=== PATIENT | female | born 1940 | race Caucasian/White ===

== ENCOUNTER 2019-02-03 19:54 | Inpatient (IN) | payer OTHER ==
[~2019-02-03] VITALS: Ht 165.1 cm; Wt 50.4 kg
[~2019-02-03 19:54] MED LIST: ASPIR 8181 MG PO; BG MC; DOC-Q-LAX1 TAB PO; FLUOXETINE10 M2 PO; GOOD SENSE ASPI81 M3 PO; HUMULIN R100 U/1 M1 IV; HUMULIN R100 U/1 M1 SC; LOTENSIN10 MG PO; METFORMIN HCL500 MG PO; MULTI-VITAMINS1 TAB PO; NOVOLOG MIX 70/33 ML SC; SIMVASTATIN10 M1 PO; TOPROL XL100 MG PO; VITAMIN C100 M1 PO; VITAMIN D1 SG1 PO
[2019-02-03 21:02] LABS: BASOPHIL % 0.1 % (0-2); PLATELET COUNT 364 x10^3mcL (130-400)
[2019-02-03 21:03] LABS: RED CELL DISTRIBUTION WIDTH 16.4 % (11.5-14.5)
[2019-02-03 21:21] LABS: microscopic required? YES; urine erythrocyte 2+ (NEGATIVE)
[2019-02-03 21:35] LABS: CALCIUM 9.1 mg/dL (8.5-10.1); CARBON DIOXIDE 12.7 mmol/L (21-32); CHLORIDE SERUM 95 mmol/L (98-107); CREATININE SERUM 1.2 mg/dL (0.6-1.0); POTASSIUM SERUM 3.8 mmol/L (3.5-5.1); SODIUM SERUM 132 mmol/L (136-145)
[2019-02-03 21:37] LABS: ALKALINE PHOSPHATASE 132 U/L (46-116); ALT/SGPT 51 U/L (14-59); AST/SGOT 25 U/L (15-37); BILIRUBIN TOTAL 0.7 mg/dL (0.20-1.00); TOTAL PROTEIN, SERUM 6.5 g/dL (6.4-8.2)
[2019-02-03 21:41] LABS: ALBUMIN 3.3 g/dL (3.4-5.0)
[2019-02-03 21:57] LABS: GLUCOSE SERUM 789 mg/dL (74-106)
[2019-02-04 01:20] VITALS: BP 145/49
[2019-02-04 04:50] LABS: CALCIUM 7.8 mg/dL (8.5-10.1); CARBON DIOXIDE 19.5 mmol/L (21-32); CHLORIDE SERUM 109 mmol/L (98-107); CREATININE SERUM 0.8 mg/dL (0.6-1.0); GLUCOSE SERUM 329 mg/dL (74-106); MAGNESIUM 1.5 mg/dL (1.8-2.4); PHOSPHOROUS 1.3 mg/dL (2.5-4.9); SODIUM SERUM 140 mmol/L (136-145)
[2019-02-04 04:51] LABS: POTASSIUM SERUM 2.5 mmol/L (3.5-5.1)
[2019-02-04 05:02] LABS: T3 TOTAL 0.21 ng/mL
[2019-02-04 05:11] LABS: FREE T4 0.78 ng/dL (0.76-1.46)
[2019-02-04 05:17] LABS: FREE THYROXINE INDEX 1.1 ug/dL (1.4-4.5)
[2019-02-04 06:54] LABS: BASOPHIL % 0.4 % (0-2); PLATELET COUNT 272 x10^3mcL (130-400)
[2019-02-04 06:57] LABS: RED CELL DISTRIBUTION WIDTH 15.6 % (11.5-14.5)
[2019-02-04 08:11] VITALS: BP 125/50
[2019-02-04 09:24] LABS: CALCIUM 7.9 mg/dL (8.5-10.1); CARBON DIOXIDE 19.5 mmol/L (21-32); CHLORIDE SERUM 111 mmol/L (98-107); CREATININE SERUM 0.8 mg/dL (0.6-1.0); GLUCOSE SERUM 168 mg/dL (74-106); MAGNESIUM 1.3 mg/dL (1.8-2.4); PHOSPHOROUS 1.2 mg/dL (2.5-4.9); SODIUM SERUM 142 mmol/L (136-145)
[2019-02-04 09:26] LABS: POTASSIUM SERUM 2.4 mmol/L (3.5-5.1)
[2019-02-04 12:30] VITALS: BP 93/56
[2019-02-04 15:18] VITALS: BP 104/52
[2019-02-04 19:20] VITALS: BP 110/41
[2019-02-04 23:11] VITALS: BP 126/42
[2019-02-05 03:06] VITALS: BP 131/49
[2019-02-05 05:29] LABS: PLATELET COUNT 313 x10^3mcL (130-400)
[2019-02-05 05:31] LABS: CALCIUM 8.2 mg/dL (8.5-10.1); CARBON DIOXIDE 16.3 mmol/L (21-32); CHLORIDE SERUM 110 mmol/L (98-107); CREATININE SERUM 0.6 mg/dL (0.6-1.0); GLUCOSE SERUM 320 mg/dL (74-106); MAGNESIUM 2.1 mg/dL (1.8-2.4); PHOSPHOROUS 2.7 mg/dL (2.5-4.9); POTASSIUM SERUM 4.2 mmol/L (3.5-5.1); SODIUM SERUM 138 mmol/L (136-145)
[2019-02-05 05:32] LABS: BASOPHIL % 0 % (0-2); RED CELL DISTRIBUTION WIDTH 16.4 % (11.5-14.5)
[2019-02-05 08:05] VITALS: BP 125/79
[2019-02-05 08:54] VITALS: Ht 165.1 cm; Wt 50.4 kg
[2019-02-05 12:32] VITALS: BP 129/46
[2019-02-05 13:13] LABS: CALCIUM 6.5 mg/dL (8.5-10.1); CHLORIDE SERUM 105 mmol/L (98-107); GLUCOSE SERUM 127 mg/dL (74-106); SODIUM SERUM 137 mmol/L (136-145)
[2019-02-05 13:19] LABS: CARBON DIOXIDE 7.1 mmol/L (21-32); POTASSIUM SERUM 6.5 mmol/L (3.5-5.1)
[2019-02-05 16:00] VITALS: BP 133/76
[2019-02-05 16:09] LABS: CARBON DIOXIDE 16.5 mmol/L (21-32); CHLORIDE SERUM 109 mmol/L (98-107); CREATININE SERUM 0.6 mg/dL (0.6-1.0); GLUCOSE SERUM 258 mg/dL (74-106); POTASSIUM SERUM 4.2 mmol/L (3.5-5.1); SODIUM SERUM 135 mmol/L (136-145)
[2019-02-05 19:20] VITALS: BP 134/64
[2019-02-05 20:06] LABS: CARBON DIOXIDE 17.9 mmol/L (21-32); CHLORIDE SERUM 108 mmol/L (98-107); CREATININE SERUM 0.7 mg/dL (0.6-1.0); GLUCOSE SERUM 316 mg/dL (74-106); POTASSIUM SERUM 4.7 mmol/L (3.5-5.1); SODIUM SERUM 135 mmol/L (136-145)
[2019-02-05 23:05] VITALS: BP 131/61
[2019-02-06 03:05] VITALS: BP 125/57
[2019-02-06 05:40] LABS: BASOPHIL % 0.5 % (0-2); PLATELET COUNT 256 x10^3mcL (130-400)
[2019-02-06 05:42] LABS: RED CELL DISTRIBUTION WIDTH 16.1 % (11.5-14.5)
[2019-02-06 05:46] LABS: CALCIUM 7.6 mg/dL (8.5-10.1); CARBON DIOXIDE 20.7 mmol/L (21-32); CHLORIDE SERUM 108 mmol/L (98-107); CREATININE SERUM 0.6 mg/dL (0.6-1.0); GLUCOSE SERUM 265 mg/dL (74-106); MAGNESIUM 1.6 mg/dL (1.8-2.4); PHOSPHOROUS 3.8 mg/dL (2.5-4.9); POTASSIUM SERUM 3.9 mmol/L (3.5-5.1); SODIUM SERUM 137 mmol/L (136-145)
[2019-02-06 10:00] VITALS: BP 127/63
[2019-02-06 11:30] VITALS: BP 114/48
[2019-02-07 07:07] LABS: BASOPHIL % 0.2 % (0-2); PLATELET COUNT 242 x10^3mcL (130-400)
[2019-02-07 07:17] LABS: RED CELL DISTRIBUTION WIDTH 16.2 % (11.5-14.5)
[2019-02-07 07:21] LABS: CALCIUM 7.7 mg/dL (8.5-10.1); CARBON DIOXIDE 21.6 mmol/L (21-32); CHLORIDE SERUM 108 mmol/L (98-107); CREATININE SERUM 0.6 mg/dL (0.6-1.0); MAGNESIUM 1.7 mg/dL (1.8-2.4); POTASSIUM SERUM 3.4 mmol/L (3.5-5.1); SODIUM SERUM 138 mmol/L (136-145)
[2019-02-07 07:46] LABS: GLUCOSE SERUM 53 mg/dL (74-106)
[2019-02-07 08:15] VITALS: BP 131/57
[2019-02-07 11:51] VITALS: BP 94/52
[2019-02-07 16:35] VITALS: BP 112/70
[2019-02-07 20:10] VITALS: BP 119/62
[2019-02-08 05:03] VITALS: BP 133/82
[2019-02-08 07:04] LABS: BASOPHIL % 0.4 % (0-2); PLATELET COUNT 334 x10^3mcL (130-400)
[2019-02-08 07:10] LABS: RED CELL DISTRIBUTION WIDTH 15.8 % (11.5-14.5)
[2019-02-08 07:33] LABS: CALCIUM 8.4 mg/dL (8.5-10.1); CHLORIDE SERUM 109 mmol/L (98-107); CREATININE SERUM 0.6 mg/dL (0.6-1.0); MAGNESIUM 1.7 mg/dL (1.8-2.4); POTASSIUM SERUM 3.7 mmol/L (3.5-5.1); SODIUM SERUM 141 mmol/L (136-145)
[2019-02-08 07:47] LABS: GLUCOSE SERUM 41 mg/dL (74-106)
[2019-02-08 08:04] VITALS: BP 126/64
[2019-02-08 11:51] VITALS: BP 127/68
[2019-02-08 16:22] VITALS: BP 138/69
[2019-02-08 20:11] VITALS: BP 147/66
[2019-02-09 04:15] VITALS: BP 114/78
[2019-02-09 06:27] LABS: BASOPHIL % 0.5 % (0-2); PLATELET COUNT 343 x10^3mcL (130-400)
[2019-02-09 06:43] LABS: CARBON DIOXIDE 24.9 mmol/L (21-32); CHLORIDE SERUM 103 mmol/L (98-107); CREATININE SERUM 0.7 mg/dL (0.6-1.0); GLUCOSE SERUM 237 mg/dL (74-106); MAGNESIUM 1.9 mg/dL (1.8-2.4); PHOSPHOROUS 3.3 mg/dL (2.5-4.9); POTASSIUM SERUM 4.4 mmol/L (3.5-5.1); SODIUM SERUM 137 mmol/L (136-145)
[2019-02-09 07:43] LABS: RED CELL DISTRIBUTION WIDTH 16.2 % (11.5-14.5)
[2019-02-09 07:50] VITALS: BP 131/70
[2019-02-09 12:00] VITALS: BP 118/70
[2019-02-09 16:03] VITALS: BP 119/57
[2019-02-09] MEDS ORDERED: LEVAQUIN750 MG PO (17:59)
[2019-02-09] MEDS ORDERED: LEXAPRO5 M1 PO (18:02)
[2019-02-09] MEDS ORDERED: METOPROLOL SUC100 M2 PO (18:02)
[2019-02-09] MEDS ORDERED: XARELTO15 M1 PO (18:03)
[2019-02-09] MEDS ORDERED: ACETAMINOPHEN-H1 TA1 PO (18:09)
[2019-02-09 20:20] VITALS: BP 136/59
[2019-02-10 05:29] VITALS: BP 131/68
[2019-02-10 06:20] LABS: BASOPHIL % 0.3 % (0-2); PLATELET COUNT 365 x10^3mcL (130-400)
[2019-02-10 06:21] LABS: CALCIUM 8.2 mg/dL (8.5-10.1); CARBON DIOXIDE 29.4 mmol/L (21-32); CHLORIDE SERUM 107 mmol/L (98-107); CREATININE SERUM 0.7 mg/dL (0.6-1.0); MAGNESIUM 1.9 mg/dL (1.8-2.4); PHOSPHOROUS 3.2 mg/dL (2.5-4.9); POTASSIUM SERUM 4.5 mmol/L (3.5-5.1); SODIUM SERUM 142 mmol/L (136-145)
[2019-02-10 06:25] LABS: RED CELL DISTRIBUTION WIDTH 16.1 % (11.5-14.5)
[2019-02-10 06:29] LABS: GLUCOSE SERUM 52 mg/dL (74-106)
[2019-02-10 07:56] VITALS: BP 124/54
[2019-02-10 11:48] VITALS: BP 127/61
[2019-02-10] MEDS ORDERED: DIGOXIN0.125 M1 PO (14:36)
== END 2019-02-10 16:28 | DRG 853 ==
LOC: ED 19:54 → IC 22:38 → DU 02-06 17:00
PROVIDERS: Emergency Medicine; Surgery; ADMIT Family Medicine
PROC: 0HB6XZZ Excision of Back Skin, External Approach (ICD-10-PCS; 2019-02-06)
PROC: 0JB90ZZ Excision of Buttock Subcutaneous Tissue and Fascia, Open Approach (ICD-10-PCS; principal; 2019-02-06 08:00)
DX: A41.9 Sepsis, unspecified organism (principal); E11.10 Type 2 diabetes mellitus with ketoacidosis without coma; I21.A1 Myocardial infarction type 2; L03.317 Cellulitis of buttock; E87.1 Hypo-osmolality and hyponatremia; T83.83XA Hemorrhage due to genitourinary prosthetic devices, implants and grafts, initial encounter; I42.2 Other hypertrophic cardiomyopathy; F33.9 Major depressive disorder, recurrent, unspecified; E11.51 Type 2 diabetes mellitus with diabetic peripheral angiopathy without gangrene; E11.65 Type 2 diabetes mellitus with hyperglycemia; I48.91 Unspecified atrial fibrillation; E87.6 Hypokalemia; E86.0 Dehydration; I10 Essential (primary) hypertension; L89.321 Pressure ulcer of left buttock, stage 1; L89.311 Pressure ulcer of right buttock, stage 1; L89.151 Pressure ulcer of sacral region, stage 1; Z79.4 Long term (current) use of insulin; Z79.82 Long term (current) use of aspirin; Z89.611 Acquired absence of right leg above knee; Z89.422 Acquired absence of other left toe(s); Z99.3 Dependence on wheelchair; Z87.891 Personal history of nicotine dependence; Z68.24 Body mass index [BMI] 24.0-24.9, adult
CPT/HCPCS: 36600; 82962; 84439; 97110-GP; 97530-GP; G0378; J0610; J1815; J1956; J2001; J2543; J3010; J3370; J3475; J3480; J3490; J7030; J7040; J7050; J7131; Q0092